=== PATIENT | female | born 1955 | race Caucasian/White ===

== ENCOUNTER 2025-06-12 14:25 | Inpatient (IN) | payer MEDICARE, OTHER, SELFPAY ==
[2025-06-12 10:26] VITALS: BP 186/74
[2025-06-12 10:43] LABS: Hematocrit 29.3 % (37.0-47.0); Hemoglobin 10.0 g/dL (12.0-16.0); Mean Corp Hgb Conc. 34.1 g/dL (33.0-37.0); Mean Corpuscular Volume 88.3 fL (81.0-99.0); Nucleated Red Blood Cells % 0 %; Platelet Count 203 10^3/uL (130-400); Red Cell Dist. Width 13.6 % (11.5-14.5)
[2025-06-12 11:10] LABS: ALT (SGPT) 22 U/L (0-35); AST (SGOT) 42 U/L (14-36); Albumin 4.5 g/dl (3.5-5.0); Alkaline Phosphatase 86 U/L (38-126); Blood Urea Nitrogen 49 mg/dl (7-17); Calcium 10.9 mg/dl (8.4-10.2); Carbon Dioxide 30 mmol/L (22-30); Chloride 103 mmol/L (98-107); Glucose 101 mg/dl (70-99); Potassium 3.4 mmol/L (3.5-5.1); Sodium 140 mmol/L (135-145); Total Protein 7.9 g/dl (6.3-8.2); eGFR 11.76
[2025-06-12] MEDS: NSS 1000 IV ×3 (13:04→21:43)
--- NOTE | 2025-06-12 13:05 | ED.GENMED ---
History of Present Illness
General
Chief Complaint: Abnormal Lab Value
Source: patient, records, family and previous hospital records
Exam Limitations: none
Time Seen by Provider: 06/12/25 12:42
Nursing documentation reviewed up to this point in time: agreed with
History of Present Illness
History of Present Illness:
70-year-old female referred by PCP due to elevated calcium and creatinine, history of the same apparently was due to increased calcium ingestion, she has no symptoms no chest pain no shortness of breath no bony pain no nausea no vomiting no
dizziness was to see nephrology today got a call from the family doctor to come to the ER
Past History
Past History
ED Past Medical History: HTN and Hypercholesterolemia
ED Past Surgical History: None
Social History
Tobacco: Non-smoker
Alcohol: Occasional
Drug: None
Personal:
Living: with family
Employment: Retired
Phy Exam
Physical Exam
Physical Exam:
Physical Exam
General: no apparent distress, not acutely ill
Neck: No jaundice
Heart: s1/s2 regular rate and rhythm, no murmur. equal radial pulses.
Lungs: no acute respiratory distress. clear bilaterally
Abdomen: Not tender
Neuro: alert and oriented. no focal neurological deficits
Skin: no rash
Psychiatric: well kept. interactive and cooperative
Extremities: no edema.
Course
Orders/Labs/Results
Orders:
Orders
06/12/25 Lunch
Cholesterol Lowering
At Your Request: Limited Participation
Does patient need a safe tray?: No
Cholesterol Lowering: Sodium, 2 Gram
06/12/25 10:34
Complete Blood Count/With Diff Urgent
Comprehensive Metabolic Panel Urgent
Phosphorus Urgent
Comment: ADD ON
06/12/25 12:57
0.9% Sodium Chloride 1000 ml [Nss] 1,000 ml IV BOLUS
CR Chest - 2 Views Urgent
Comment:
Reason For Exam: bib
06/12/25 13:00
NEPHROLOGY CONSULT Routine
Consulting Provider: Marjorie Schilling
Was physician already notified: Yes
06/12/25 13:01
Electrocardiogram (*1) Urgent
Reason for Study: QTc Monitoring
EKG- Treatment ONCE
06/12/25 13:50
Add On- LAB Routine
Tests Added?: I PTH, vit d3 level
Bladder Scan As Directed
Follow Bladder Retention/Intermittent Cath Algorithm?: Yes
PRN if no void in __ hours: 6
Frequency: Per Retention Algorithm
If Bladder Scan Result >: 400
then:: Straight cath
Straight Cath As Directed
Frequency: Per Retention Algorithm
Additional Instructions: straight cath as needed per acute urinary retention algorithm for 24 hrs
Additional Instructions: for bladder scan greater than 400 mL
US Renal Only W/O Bladder Routine
Comment:
Reason For Exam: BIB
06/12/25 14:00
Admit/Transfer Patient As Directed
Co-Sign Provider:
Level of Care: Inpatient admission
Assign to:: Telemetry
Physician / Group: Hospitalist
Diagnosis: Hypercalcemia
Reason for Telemetry: Other
Other Reason for Telemetry: Electrolyte imbalance
Date to Stop Telemetry: 06/14/25
Time to Stop Telemetry: 11:00
Reason for Hospitalization: Hypercalcemia
Expected length of stay greater than two midnights?: Yes
ELOS- Estimated Length of Stay in days: 3
I certify the patient meets the requirements for IP care: Yes
PRN Pain Medication Management As Directed
May give lesser potent ordered pain med per pt: Yes
preference::
Protocol:: Medication orders for pain may be administered in a
manner that supports deferring to patient preference
when the pt is:
- Requesting an ordered lesser potent pain medication.
Least to most potent pain medications are defined
as: acetaminophen < NSAID < tramadol < opioids
(morphine, oxycodone, hydromorphone).
- Requesting a lesser dose of the same medication IF
ORDERED.
- Requesting a less intrusive route of administration
if both routes are prescribed by the provider (PO <
IV).
06/12/25 14:04
Code Status As Directed
Resuscitation Status: Full Code
Potassium Chloride [KCl] 40 meq PO NOW STA
06/12/25 14:06
NIRAJ w/Free Light Chains, Urine [S] Routine
Protein/Creat Ratio (Random) Routine
Date Specimen was Collected: 06/12/25
Time Specimen was Collected: 14:01
Urinalysis Routine
Date Specimen was Collected: 06/12/25
Time Specimen was Collected: 14:01
Urine Microscopic Routine
Date Specimen was Collected: 06/12/25
Time Specimen was Collected: 14:01
Urine Sodium Routine
Date Specimen was Collected: 06/12/25
Time Specimen was Collected: 14:01
06/12/25 14:12
Add On- LAB Urgent
Tests Added?: Phosphorus
06/12/25 15:20
0.9% Sodium Chloride 1000 ml [Nss] 1,000 ml IV 100 mls/hr
Bisacodyl [Dulcolax] 10 mg RECTAL [id number] PRN
Docusate W/Senna [Senokot-S] 1 tablet PO BIDPRN PRN
Polyethylene Glycol Powder [Miralax] 17 grams PO DAILYPRN PRN
06/12/25 15:20
Activity As Directed
Activity Level: Out of Bed-Early Mobility
Vital Signs As Directed
Frequency: Per unit guidelines
DX Deep Vein Thrombosis Video Routine
DX Deep Vein Thrombosis Video Routine
06/12/25 15:43
BMP [Basic Metabolic Panel] Routine
Ionized Calcium Urgent
PTH [Intact PTH Includes Calcium] Urgent
Vitamin D, 25-OH Urgent
06/12/25 20:00
Heparin 5,000 units SC Q12
06/13/25 06:13
Basic Metabolic Panel IN AM
Complete Blood Count/No Diff IN AM
Protein Electrophoresis Reflex [S] IN AM
06/13/25 08:00
Atorvastatin [Lipitor] 40 mg PO DAILY
Propranolol Extended Release [Inderal LA] 80 mg PO DAILY
06/14/25 11:00
DC Protocol for Telemetry ONCE
Abnormal Lab Results
06/12/25 06/12/25
10:34 14:06
RBC 3.32 L 10^6/uL
(4.20-5.40)
Hgb 10.0 L g/dL
(12.0-16.0)
Hct 29.3 L %
(37.0-47.0)
MPV 11.0 H fL
(7.4-10.4)
Absolute Neuts (auto) 7.3 H 10^3/uL
(1.4-6.5)
Neutrophils % 78.0 H %
(42.2-75.2)
Lymphocytes % 15.5 L %
(20.5-51.1)
Potassium 3.4 L mmol/L
(3.5-5.1)
BUN 49 H mg/dl
(7-17)
Creatinine 3.9 H mg/dL
(0.6-1.0)
Glucose 101 H mg/dl
(70-99)
Calcium 10.9 H mg/dl
(8.4-10.2)
AST 42 H U/L
(14-36)
Urine Occult Blood 2+ A
(Negative)
Ur Leukocyte Esterase 1+ A
(Negative)
Urine WBC 26-30 A /HPF
(0-5)
Urine Bacteria Moderate A
(Negative)
Urine Albumin 2+ A
(Neg - Trace)
06/12/25 10:34
06/12/25 10:34
Vital Signs
Initial and Last Documented VS:
Initial Vital Signs
Temp Pulse Resp BP Pulse Ox
98.3 F 77 16 186/74 100
06/12/25 10:26 06/12/25 10:26 06/12/25 10:26 06/12/25 10:26 06/12/25 10:26
Last Documented Vital Signs
Temp Pulse Resp BP Pulse Ox
98.4 F 67 18 163/57 100
06/13/25 15:07 06/13/25 15:07 06/13/25 15:07 06/13/25 15:07 06/13/25 15:07
MDM/Problems Addressed
Differential Diagnosis Includes:
BIB hypercalcemia meds dehydration myeloma
MDM/Problems Addressed:
Hypercalcemia BIB
Chronic conditions affecting care: HTN
Acute Exacerbation and/or Progression of Chronic Illness: HTN
*Pulse Oximetry
SaO2: 100
Oxygen Mode of Delivery: Room air
Patient hypoxic: no (99)
*Critical Care Note
Total Time (30-74mins, 75-104mins- exclusive of procedures): Not Applicable
Update Note
Update Note:
Update patient well-appearing, calcium only 10.9 will start normal saline, message sent to nephrology and hospitalist
ED Attending Note
-
Portions of this chart may have been created with voice recognition software.� Occasional wrong word or��sound alike� substitutions may have occurred due to the inherent limitations of voice recognition software.
Discharge Plan
Departure
Patient Disposition: Admit
Date of Disposition: 06/12/25
Time of Disposition: 13:11
Admit to: Med/Surg
Presentation/result/management discussed w/ accepting MD/DO: Hospitalist
Patient with high blood pressure during this ER visit?: No
Condition: Fair
Discharge Problem:
Hypercalcemia, BIB (acute kidney injury)
Interventions
Interventions:
*Risk Screen - Suicide Last Done: 06/12/25 13:07
*General Assessment Last Done: 06/12/25 13:07
*Neglect/Abuse Screening Last Done: 06/12/25 13:07
*ED COVID-19 Vaccine History Last Done: 06/12/25 13:07
*ED Influenza Vaccine History Last Done: 06/12/25 13:07
[facility] Fall Risk Assessment Tool Last Done: 06/12/25 12:31
*Nursing Disposition Last Done: 06/12/25 15:24
Discharge Date and Time
Discharge Date/Time: 06/12/25 15:24
[2025-06-12 13:12] VITALS: BP 175/62
--- NOTE | 2025-06-12 13:42 | W.CON.NEPH ---
Consultation
-
Date/Time Consultation Requested: 06/12/25 1300
Date/Time Consultation Performed: 06/12/25 1330
Requesting Provider: Jeremy Hahn
Performing Provider: Marjorie Emmanuel
Reason for Consultation: BIB, hypercalcemia
Medical History
-
Chief Complaint: abnormal labs, high sherman, BIB
History of Present Illness:
70-year-old female with a past medical history over the past seven years maintained on lisinopril and propranolol, HLD on statin, GERD , previous h/o BIB, hypercalcemia in 2020 from tums was asked to come to ER by her PCP. She apparently missed her
appointments with PCP since last January in 2023, she finally saw them over week ago and had labs done beginning of Jun. She was told that her sherman was high and cr also elevated. She could not remember the lab results. She was asked to stop all cacium
and vit d meds. She later realized that was taking large amount of tums for GERD for several months. She does not know when she started taking. Repeat labs 2days ago noted worsening labs GFR 13, shemran 13. She was asked to come to ER. Today her sherman is
10.9, cr 3.9, k low 3.4. Hence nephrology asked to evaluate. She was supposed to be seen at Nephro office today but now that she is in ER appointment cancelled. She reports no cp or sob. no abd pain. no diarrhea or constipation. No wt loss or n/v.
No dysuria or polyuria. no change in mental status or confusion. No fever or cough.
Past Medical History
HTN
HLD
GERD
Social History
Tobacco: Non-Smoker
Alcohol: Occasional
Drug: None
Personal:
Living: With Family
Employment: Retired
Family History
Family History: Not Pertinent
Allergies / Home Medications
Allergy/AdvReac Type Severity Reaction Status Date / Time
No Known Allergies Allergy Unverified 06/12/25 10:29
�Medication �Instructions �Recorded �Confirmed �Type
propranolol 80 mg capsule,24 80 mg PO DAILY Blood pressure 08/13/20 06/12/25 History
hr,extended release
atorvastatin 40 mg tablet (Lipitor) 40 mg PO DAILY High Cholesterol 06/12/25 06/12/25 History
calcium carbonate (Tums) 200 mg PO QIDPRN PRN gerd 06/12/25 06/12/25 History
lisinopril 20 mg tablet 20 mg PO DAILY Blood Pressure 06/12/25 06/12/25 History
vit C 250 mg-vit E 90 mg-zinc 40 1 tab PO DAILY Supplement 06/12/25 06/12/25 History
mg-copper 1 [id number]
capsule (PreserVision AREDS-2)
Review of Systems
-
All other systems: Negative unless noted
Physical Exam
Vital Signs
Vital Signs
Temp Pulse Resp BP Pulse Ox
98.3 F 76 16 175/62 98
06/12/25 10:26 06/12/25 13:06 06/12/25 13:06 06/12/25 13:12 06/12/25 13:13
Lab Results
WBC 9.3 10^3/uL (4.8-10.8) 06/12/25 10:34
RBC 3.32 10^6/uL (4.20-5.40) L 06/12/25 10:34
Hgb 10.0 g/dL (12.0-16.0) L 06/12/25 10:34
Hct 29.3 % (37.0-47.0) L 06/12/25 10:34
Plt Count 203 10^3/uL (130-400) 06/12/25 10:34
Sodium 140 mmol/L (135-145) 06/12/25 10:34
Potassium 3.4 mmol/L (3.5-5.1) L 06/12/25 10:34
Chloride 103 mmol/L (98-107) 06/12/25 10:34
Carbon Dioxide 30 mmol/L (22-30) 06/12/25 10:34
BUN 49 mg/dl (7-17) H 06/12/25 10:34
Creatinine 3.9 mg/dL (0.6-1.0) H 06/12/25 10:34
eGFR 11.76 06/12/25 10:34
Glucose 101 mg/dl (70-99) H 06/12/25 10:34
Calcium 10.9 mg/dl (8.4-10.2) H 06/12/25 10:34
Albumin 4.5 g/dl (3.5-5.0) 06/12/25 10:34
Physical Exam
General: Awake, Alert, Oriented, AOx3, No Distress and Nontoxic
HEENT: EOMI, Anicteric, Conjunctivae Clear, Ear/Nose Intact and Trachea Midline
Respiratory: Clear, Normal Excursion and Nonlabored Respirations
Cardiac: S1/S2 and Regular Rate/Rhythm
Breast: Deferred by me
Abdomen: Soft, Nontender and Nondistended
Musculoskeletal: No Cyanosis and No Edema
Skin: No Rash and Other (face mildly flushed)
Neuro: Nonfocal/Grossly Intact
Psych: Mood/afflect pleasant, Insight/judgement good and Appropriate
Assessment/Plan
-
IMP:
BIB-no baseline cr
Hyperclacemia
HTN
GERD
HLD
Anemia
Hypokalemia
PLan:
A/w abnormal labs, BIB and hypercalcemia out pt 13, GFR13
similar presentation in 2020, w/u neg felt from tums
BIB-possible prerenal from above, check UA and Fena
bladder scan, check renal US
will give her gentle IVF-NS and monitor UOP
hypercalcemia again likely from Tums-pt took large amount for several months
keep off all calcium meds and vit D, level seem to improve already
no need of bisphosphonate
check IPTH, vit D level, paraprotein w/u.
2020 SPEP neg and TANO levels were fine
Bp high , resume BB, may need CCB if needed, hold ACEI
also reviewed that she will need to complete cancer screening as out pt
d/w pt and at bedside
--- NOTE | 2025-06-12 14:04 | W.PN.UPDATE ---
Update Note
Progress Note Update
This is an addendum to H&P written by Resident Physician Dr. Jennifer Galo
I saw and examined the patient.
The LOCKSTITCH FRONT MAKER's note was reviewed and I agree with the note.
Comment:
Ms. Dominga Curry is a 70 yo woman with hx essential HTN, HLD, admission for hypercalcemia 08/24 sent to ER by PCP for elevated calcium and creatinine. Ca was 13 on labs yesterday.
Triage VS: T 98.3, P 77, RR 16, BP 186/74, SpO2 100%
On exam patient is AAO x 3, in no acute distress; CV: S1, S2, RRR. Chest clear. Abdomen benign. No LE swelling.
LABS: WBC 9.3, Hg 10, PLT 203, Na 140, K+ 3.4, CO2 30, BUN 49, Cr 3.9, Glucose 101, Ca 10.9, T. Bili 0.6, AST 42, ALT 22, Alk Phos 86
MAR: 1L NS
Acute Renal Failure
-etiology unclear
-follow up urine studies
-follow up SPEP/UPEP
-Renal US
-NS @ 100
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
-Renal consulted, follow up further recommendation
Hypercalcemia
-patient takes Tums intermittently, last 2 weeks ago
-follow up PTH, ionized calcium, vitamin d-oh
-IVF as above
-follow up UPEP
Mild Hypokalemia
-repleted
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
DVT PPx hep subQ
FULL CODE
76 minutes spent on patient care
--- NOTE | 2025-06-12 14:13 | HPS.HSE ---
Family Physician
-
Family Physician: Joce Chambers
Chief Complaint
-
Hypercalcemia
History of Present Illness
70-year-old female with history of hypertension, hyperlipidemia, GERD presents today from outpatient primary care because of high calcium level. Patient states that she was seen by her primary care physician as a routine visit and her labs showed
elevated calcium- 13, PTH7 Primary care physician spoke to outpatient outside plant technician and the recommended ER visit. She notes of taking TUMs as needed for heartburn. She started taking tums a year ago, last dose was 2 weeks ago. Patient is
asymptomatic, denies nausea, vomiting, abdominal pain, weakness, chest pain, shortness of breath, palpitations. She denies history of kidney stones. She is not on any antidepressant/antipsychotic medications.
Medical History
Past Medical History
Past Medical History: Reports HTN and Hypercholesterolemia
Past Surgical History: Reports None
Social History
Tobacco: Non-smoker
Alcohol: None
Drug: None
Personal:
Living: With Family
Employment: Retired
Family History
Family History: Not pertinent
Allergies / Home Medications
Allergies reflects when Allergies were last updated in [facility].
Home Medications with original date entered in [facility]
Allergy/Medication List:
Allergies
Allergy/AdvReac Type Severity Reaction Status Date / Time
No Known Allergies Allergy Unverified 06/12/25 10:29
Home Medications
propranolol 80 mg capsule,24 hr,extended release 80 mg PO DAILY Blood pressure 08/13/20
atorvastatin 40 mg tablet (Lipitor) 40 mg PO DAILY High Cholesterol 06/12/25
calcium carbonate (Tums) 200 mg PO QIDPRN PRN gerd 06/12/25
lisinopril 20 mg tablet 20 mg PO DAILY Blood Pressure 06/12/25
vit C 250 mg-vit E 90 mg-zinc 40 mg-copper 1 [id number] capsule (PreserVision AREDS-2) 1 tab PO DAILY Supplement 06/12/25
Review of Systems
-
History Source: Patient
A 12 point ROS was completed and negative except as noted: Yes
Physical Exam
Vital Signs
Vital Signs
Temp Pulse Resp BP Pulse Ox
98.3 F 76 16 175/62 98
06/12/25 10:26 06/12/25 13:06 06/12/25 14:00 06/12/25 13:12 06/12/25 13:13
Physical Exam
General: Comfortable and Conversant
HEENT: NormoCephalic, Anicteric and Moist mucous membranes
Respiratory: Clear
Cardiac: S1/S2 and Regular Rhythm
GI: Soft, Non Tender, Non Distended and Normal Bowel Sounds
Musculoskeletal: No Edema
Skin: Warm and Dry
Neuro: AO x 3 and Nonfocal/grossly intact
Hematologic/Lymphatic: No Lymphadenopathy
Psych: Calm
Laboratory Results
-
06/12/25 10:34
06/12/25 10:34
Laboratory Results
Total Bilirubin 0.6 mg/dl (0.2-1.3) 06/12/25 10:34
AST 42 U/L (14-36) H 06/12/25 10:34
ALT 22 U/L (0-35) 06/12/25 10:34
Alkaline Phosphatase 86 U/L (38-126) 06/12/25 10:34
Data Reviewed
-
Diagnostic Radiology: Report Reviewed by me and Discussed with Physician
Lab Data: Labs Reviewed by me and Discussed with Physician
Impression/Plan
-
IMPRESSION:
Hypercalcemia
BIB
Hypokalemia
History of GERD
Essential hypertension
Hyperlipidemia
PLAN:
Hypercalcemia
Outpatient nonionized calcium , PTH 7.
Upon arrival to the ED none ionized calcium 10.9 , creatinine 3.9
Suspect Hypoparathyroidism due to overuse of tums.
Check ionized calcium and repeat PTH.
Continue IV fluid @100cc/hr
Appreciate nephrology input
Hold Tums, multivitamins, lisinopril.
Repeat BMP in a.m
BIB
Serum sodium 140, creatinine 3.9, baseline 1.5
Patient is euvolemic on exam.
Await Urine sodium, urine creatinine, SPEP, free kappa/lamda ratio
Continue IV fluid @100cc/hr
Repeat BMP in the a.m.
Hold lisinopril
Hypokalemia
K 3.4. Replete potassium.
Repeat BMP in a.m.
History of GERD
Hold Tums
Recommend Pepcid as needed for heartburn
Essential hypertension
Hold lisinopril.
Continue propranolol.
Hydralazine if SBP >170
Monitor blood pressure closely
Hyperlipidemia
Continue atorvastatin
Full code
Heparin SC
Cholesterol-lowering diet
[2025-06-12 14:22] LABS: Urine Character Clear (Clear)
[2025-06-12 14:47] LABS: Urine Red Blood Cell 0-2 /HPF (0-2); Urine White Cell 26-30 /HPF (0-5)
[2025-06-12 15:30] VITALS: BMI 30.3
[2025-06-12 15:31] VITALS: BP 160/76
[2025-06-12] MEDS: KCL 40 MEQ PO (15:58)
[2025-06-12 16:12] LABS: Blood Urea Nitrogen 45 mg/dl (7-17); Calcium 10.3 mg/dl (8.4-10.2); Carbon Dioxide 27 mmol/L (22-30); Chloride 104 mmol/L (98-107); Estimated Creatinine Clearance 13 ml/min; Glucose 92 mg/dl (70-99); Potassium 3.4 mmol/L (3.5-5.1); Sodium 140 mmol/L (135-145); eGFR 12.14
--- NOTE | 2025-06-12 16:16 | PTCARENOTE ---
received pt from ER via stretcher, accompanied by ER staff. Pt AAO x3, YUSUF well, ambulatory to bed, no c/o weakness.dizziness. PLaced on telemetry:NSR. VSS. On room air- pulse ox 100%, no SOB noted. Abd soft, rounded, to start 2 Gm Na/chol
lowering diet. Pt DTV- will void in BR. Afebrile; skin W/D/I. IV NSS @ 100 ml/hr infusing via Ryt AC site without sx of infiltration. Oriented to 4 East, currently resting comfortably. Will continue to monitor.
[2025-06-12 16:32] LABS: Vitamin D, 25-OH*** 87.5 ng/mL (30-80)
[2025-06-12 19:50] VITALS: BP 174/67
[2025-06-12] MEDS: HEPARIN 5000 UNITS SC (21:31)
[2025-06-12 23:41] VITALS: BP 152/65
[2025-06-13 03:19] VITALS: BP 139/61
[2025-06-13 06:50] LABS: Blood Urea Nitrogen 38 mg/dl (7-17); Calcium 9.2 mg/dl (8.4-10.2); Carbon Dioxide 26 mmol/L (22-30); Chloride 110 mmol/L (98-107); Estimated Creatinine Clearance 15 ml/min; Glucose 88 mg/dl (70-99); Potassium 3.7 mmol/L (3.5-5.1); Sodium 140 mmol/L (135-145); eGFR 14.92
[2025-06-13 07:53] VITALS: BP 152/62
[2025-06-13] MEDS: HEPARIN 5000 UNITS SC (07:58)
[2025-06-13] MEDS: INDERAL LA 80 MG PO (07:58)
[2025-06-13] MEDS: LIPITOR 40 MG PO (07:59)
[2025-06-13] MEDS: NSS 1000 IV (08:01)
--- NOTE | 2025-06-13 08:02 | W.PN.HOSP.TC ---
Today's Communication/Plan
-
Continue IV fluid.
Pending nephrology evaluation
Assessment / Plan
Assessment / Plan
Impression:
70-year-old female with history of hypertension, hyperlipidemia, GERD presents today from outpatient primary care because of high calcium level. Patient states that she was seen by her primary care physician as a routine visit and her labs showed
elevated calcium- 13, PTH7 Primary care physician spoke to outpatient chief nuclear medicine technologist and the recommended ER visit. She notes of taking TUMs as needed for heartburn. She started taking tums a year ago, last dose was 2 weeks ago. Patient is
asymptomatic, denies nausea, vomiting, abdominal pain, weakness, chest pain, shortness of breath, palpitations. She denies history of kidney stones. She is not on any antidepressant/antipsychotic medications.
Assessment/plan:
Acute Kidney Injury (BIB) on CKD stage IIIb
Serum sodium: 140, creatinine: 3.9 (baseline 1.5 on 2020)
Patient is euvolemic on exam
Actions:
Status post IV fluids.
Creatinine improved to 3.2
Hold lisinopril.
Nephrology consulted
Hypercalcemia
Outpatient non-ionized calcium and PTH: 7
On ED arrival: non-ionized calcium 10.9, creatinine 3.9
Calcium level improved to 9.2
Ionized calcium 1.33 pending intact PTH
IV fluid.
Nephrology consulted
Hypokalemia
Replaced
History of GERD
Hold Tums
Essential Hypertension
Hold lisinopril
Continue propranolol
Hydralazine PRN if SBP >170
Monitor blood pressure closely
Hyperlipidemia
Continue atorvastatin
CODE STATUS: Full code
DVT prophylaxis: Heparin SC
Diet: Cholesterol-lowering diet
Disposition: Continue IV fluid.
Pending nephrology evaluation
Total time spent on today's encounter was 55 minutes which included time spent in counseling the patient/family regarding diagnosis and treatment plan as listed above, goals of care, and symptom management. Case was discussed with nursing staff,
specialists, and care coordinators/case management. All labs and imaging personally reviewed by me. Remainder the time spent in detailed review of previous records, lab data, imaging, and other medical provider documentation.
Anticipated Discharge: 24 - 48 hours
Subjective/Interval History
-
Date of Service: June 13, 2025
Patient seen and examined at bedside, denies any chest pain or shortness of breath, no abdominal pain, no nausea, no vomiting, no diarrhea or constipation.
Objective Data
-
Labs:
Laboratory Results
06/13/25
06:13
WBC Pending
Hgb Pending
Hct Pending
Plt Count Pending
Sodium 140
Potassium 3.7
Chloride 110 H
Carbon Dioxide 26
BUN 38 H
Creatinine 3.2 H
Glucose 88
Calcium 9.2
Vital Signs:
Vital Signs
Temp Pulse Resp BP Pulse Ox
98 F 66 17 139/61 98
06/13/25 03:19 06/13/25 03:19 06/13/25 03:19 06/13/25 03:19 06/13/25 03:19
I&O
06/12/25 06/13/25 06/14/25
06:59 06:59 06:59
Intake Total 680 / 680
Balance 680 / 680
Physical Exam
-
General: Well Developed, Well Nourished, No Apparent Distress and Comfortable
HEENT: Normocephalic, Atraumatic, Moist Mucous Membranes, No Ptosis, PERRLA and Nose Appears Normal
Respiratory: Clear to Auscultation and Non Labored Respirations
Cardiac: Regular Rhythm and S1/S2
Breast: Deferred by me
GI: Soft, Nontender, Nondistended and Normal Bowel Sounds
Genito-urinary: No Costovertebral Tender
Musculoskeletal: No Clubbing, No Cyanosis and No Edema
Skin: Warm
Neuro: Awake, Alert, Oriented, AO x 3 and No Motor Deficits
Psych: Calm
Data Reviewed
-
Diagnostic Radiology: Image personally visualized and interpreted and Report Reviewed by me
CT Scan: Image personally visualized and interpreted and Report Reviewed by me
Ultrasound: Image personally visualized and interpreted and Report Reviewed by me
MRI: Image personally visualized and interpreted and Report Reviewed by me
Medical Tests (Nuc Med, Echo etc): Image personally visualized and interpreted and Report Reviewed by me
Labs: Labs Reviewed by me
Old Records: Reviewed
[2025-06-13 11:50] VITALS: BP 148/58
[2025-06-13 13:49] LABS: Hematocrit 25.3 % (37.0-47.0); Hemoglobin 8.3 g/dL (12.0-16.0); Mean Corp Hgb Conc. 32.8 g/dL (33.0-37.0); Mean Corpuscular Volume 92.3 fL (81.0-99.0); Platelet Count 163 10^3/uL (130-400); Red Cell Dist. Width 13.8 % (11.5-14.5)
[2025-06-13 15:07] VITALS: BP 163/57
--- NOTE | 2025-06-13 16:08 | CM ---
Alert awake oriented patient who lives with her spouse Maverick in a 2 story home with 2 steps to enter and 14 steps to bed/bathroom. She is independent in activates of daily living.She does drive .No adaptive devices.Offered VN she declined need.
No VN in past . No SNF hx
Pharmacy [facility] [address]
PCP Dr Lea
PLAN Home with no needs
--- NOTE | 2025-06-13 16:16 | W.DCSUMMARY ---
Discharge Summary
Discharge Data
Date of Admission: 06/12/25
Date of Discharge: 06/13/25
Total time spent discharging patient (in min): 40
-
Pending Results: No
Hospital Course
Hospital course
70-year-old female with history of hypertension, hyperlipidemia, GERD presents today from outpatient primary care because of high calcium level. Patient states that she was seen by her primary care physician as a routine visit and her labs showed
elevated calcium- 13, PTH7 Primary care physician spoke to outpatient time analysis clerk and the recommended ER visit. She notes of taking TUMs as needed for heartburn. She started taking tums a year ago, last dose was 2 weeks ago. Patient is
asymptomatic, denies nausea, vomiting, abdominal pain, weakness, chest pain, shortness of breath, palpitations. She denies history of kidney stones. She is not on any antidepressant/antipsychotic medications.
seen by nephrology who recommends discharge and follow up as outpatient.
During hospitalization patient was treated from the following
Acute Kidney Injury (BIB) on CKD stage IIIb
Serum sodium: 140, creatinine: 3.9 (baseline 1.5 on 2020)
Patient is euvolemic on exam
Actions:
Status post IV fluids.
Creatinine improved to 3.2
Hold lisinopril.
Nephrology consulted
seen by nephrology who recommends discharge and follow up as outpatient.
Hypercalcemia
Outpatient non-ionized calcium and PTH: 7
On ED arrival: non-ionized calcium 10.9, creatinine 3.9
Calcium level improved to 9.2
Ionized calcium 1.33 pending intact PTH
IV fluid.Nephrology consulted
Hypokalemia
Replaced
History of GERD
Hold Tums
Essential Hypertension
Hold lisinopril
Continue propranolol
Hydralazine PRN if SBP >170
Monitor blood pressure closely
Hyperlipidemia
Continue atorvastatin
CODE STATUS: Full code
DVT prophylaxis: Heparin SC
Diet: Cholesterol-lowering diet
Disposition:Discharge home.
Total time spent on today's encounter was 40 minutes which included time spent in counseling the patient/family regarding diagnosis and treatment plan as listed above, goals of care, and symptom management. Case was discussed with nursing staff,
specialists, and care coordinators/case management. All labs and imaging personally reviewed by me. Remainder the time spent in detailed review of previous records, lab data, imaging, and other medical provider documentation.
Anticipated Discharge: Today
Discharge Plan
-
Patient Disposition: Home (Routine Discharge)
Discharge Diagnosis/Procedures: Acute Kidney Injury (BIB) on CKD stage IIIb
Hypercalcemia
Diet: As tolerated
Activity: As tolerated
Blood Work: needs repeat BMP in 2 days
Referrals:
Joce Chambers MD [Family Provider, Family Practice]
Marjorie Schilling MD [Active, Nephrology] - in less than 1 week
Prescriptions:
Continued
propranolol 80 MG capsule,extended release 24 hr
80 mg PO DAILY
atorvastatin [Lipitor] 40 mg Tablet
40 mg PO DAILY
PreserVision AREDS-2 250-90-40-1 mg Capsule
1 tab PO DAILY
Held
lisinopril 20 mg Tablet
20 mg PO DAILY
Hold Instructions: till seen by nephrology
Discontinued
calcium carbonate [Tums] 200 mg calcium (500 mg) Tablet,Chewable
200 mg PO QIDPRN PRN (Reason: gerd)
Discharge Orders:
Discharge Patient (As Directed); Ordered 06/13/25
Ordered By: Fili Lambert
Discharge Date and Time
Print Language: FINNISH
--- NOTE | 2025-06-13 16:26 | W.PN.NEPH.PH ---
Today's Communication / Plan
-
see plan
Assessment/Plan
-
IMP:
BIB-no baseline cr
Hyperclacemia
HTN
GERD
HLD
Anemia
Hypokalemia
PLan:
A/w abnormal labs, BIB and hypercalcemia out pt 13, GFR13
similar presentation in 2020, w/u neg felt from tums
BIB-possible prerenal from above,
UA pyuria and bact, U PCR 1gm/gm of cr, FEna not low
renal US no hydro.
cr is improving to 3.2 with IVF
hypercalcemia again likely from Tums-pt took large amount for several months
keep off all calcium meds and vit D, level seem to improved already
pending IPTH, high vit D level, await paraprotein w/u.
2020 SPEP neg and TANO levels were fine
Bp high , resume BB, may need CCB if needed, hold ACEI at d/c
also reviewed that she will need to complete cancer screening as out pt
d/w pt and at bedside
She wants to go home today, no objection per renal
BMP in 2days, f/u PCP
Nephro f/u
informed primary team
-
-
Date of Service: June 13, 2025
CC / HPI / ROS
-
Chief Complaint:
BIB, hypercalcemia
History of Present Illness:
sherman normal 9.2
cr better at 3.2 with IVF
bp increasing trend
k normal
Review of Systems:
no cp or sob
feels well
Labs
-
Labs:
WBC 5.8 10^3/uL (4.8-10.8) 06/13/25 06:13
RBC 2.74 10^6/uL (4.20-5.40) L 06/13/25 06:13
Hgb 8.3 g/dL (12.0-16.0) L 06/13/25 06:13
Hct 25.3 % (37.0-47.0) L 06/13/25 06:13
Plt Count 163 10^3/uL (130-400) 06/13/25 06:13
Sodium 140 mmol/L (135-145) 06/13/25 06:13
Potassium 3.7 mmol/L (3.5-5.1) 06/13/25 06:13
Chloride 110 mmol/L (98-107) H 06/13/25 06:13
Carbon Dioxide 26 mmol/L (22-30) 06/13/25 06:13
BUN 38 mg/dl (7-17) H 06/13/25 06:13
Creatinine 3.2 mg/dL (0.6-1.0) H 06/13/25 06:13
eGFR 14.92 06/13/25 06:13
Glucose 88 mg/dl (70-99) 06/13/25 06:13
Calcium 9.2 mg/dl (8.4-10.2) 06/13/25 06:13
Phosphorus 3.3 mg/dl (2.5-4.5) 06/12/25 10:34
Albumin 4.5 g/dl (3.5-5.0) 06/12/25 10:34
Physical Exam
-
Vital Signs:
Vital Signs
Temp Pulse Resp BP Pulse Ox
98.4 F 67 18 163/57 100
06/13/25 15:07 06/13/25 15:07 06/13/25 15:07 06/13/25 15:07 06/13/25 15:07
Cardiovascular:: Regular rate and rhythm
Respiratory:: Bilateral: CTA
Lung Excursion:: Normal
Abdomen:: Nontender and Soft
Extremity Edema:: None: Bilateral:
Urrutia Catheter: No
== END 2025-06-13 17:35 | disposition home or self-care (01) | DRG 641 ==
LOC: 4 EAST ACU 14:25
PROVIDERS: Emergency Medicine; Student in an Organized Health Care Education/Training Program; ADMITTING PHYSICIAN Student in an Organized Health Care Education/Training Program; ATTENDING PHYSICIAN General Practice; CONSULT PHYSICIAN Internal Medicine; EMERGENCY PHYSICIAN Emergency Medicine; FAMILY PHYSICIAN Family Medicine
DX: E83.52 Hypercalcemia (principal); N17.9 Acute kidney failure, unspecified; E78.00 Pure hypercholesterolemia, unspecified; K21.9 Gastro-esophageal reflux disease without esophagitis; N18.32 Chronic kidney disease, stage 3b; I12.9 Hypertensive chronic kidney disease with stage 1 through stage 4 chronic kidney disease, or unspecified chronic kidney disease; E87.6 Hypokalemia; D64.9 Anemia, unspecified; Z79.899 Other long term (current) drug therapy
CPT/HCPCS: 71046; 76775; 80048; 80053; 81003; 81015; 82306; 82330; 82570; 83520; 83970; 84100; 84155; 84156; 84165; 84300; 85025; 85027; 86335; 93005; 96360; 99285